=== PATIENT | female | born 1980 | race Caucasian/White ===

== ENCOUNTER 2024-11-13 15:35 | Outpatient (CLI) | payer OTHER, SELFPAY ==
--- NOTE | 2024-11-13 15:46 | MR_ITS ---
WS: [id number] MRI HEAD WITH CONTRAST WITH ATTENTION TO THE INTERNAL AUDITORY CANALS TECHNIQUE: Sagittal T1, T2 axial, T2 axial flair, axial susceptibility weighted imaging, axial diffus ion weighted images, and coronal T2 images were obtained. Pre and post T1 axial and post T1 coronal i mages. ADC and FSPGR images. Post gadolinium images with attention to the internal auditory canals. A xial fiesta imaging. CLINICAL INFORMATION: SENSORINEURAL HEARING LOSS COMPARISON: None. FINDINGS: No evidence of restricted diffusion to suggest acute ischemia. Ventricular system and basilar cistern s are patent. 2 or 3 foci of T2 hyperintensity in the supratentorial white matter nonspecific in a pa tient this age but can be seen with migraine headaches. No significant parenchymal volume loss. Normal posterior fossa. Normal vascular flow voids at the skull base. No extra-axial fluid collection s. No evidence of mass or mass effect. Paranasal sinuses and mastoid air cells are well aerated. No h emosiderin on the susceptibly weighted images. The Normal optic chiasm and pituitary infundibulum. Temporal lobes and hippocampal formations are normal in appearance. No abnormal gadolinium enhancement. Proximal 7th and 8th cranial nerves are normal in appearance. Normal trigeminal nerve root entry zones. No other suspicious findings. MR/MR iac's wo/w con* [id number] IMPRESSION: 1. Proximal 7th and 8th cranial nerves are normal in appearance. 2. Normal trigeminal nerve root entry zones. 3. No evidence of enhancing IAC or CP angle mass. 4. 2 or 3 tiny foci of T2 hyperintensity in the supratentorial white matter no nspecific in a patient this age but can be seen with migraine headaches. 5. No other acute findings.
== END 2024-11-13 15:36 | disposition home or self-care (01) ==
PROVIDERS: PCP Nurse Practitioner Family; Visit Provider Otolaryngology
DX: R90.82 White matter disease, unspecified (principal); H90.3 Sensorineural hearing loss, bilateral; H93.13 Tinnitus, bilateral
CPT/HCPCS: 70553; A9577